=== PATIENT | female | born 1940 | race Caucasian/White ===

== ENCOUNTER 2023-05-29 08:15 | Emergency (ER) | payer MEDICARE, OTHER ==
[2023-05-29] MEDS ORDERED: Bacitracin 1 PK ONE (10:08)
== END 2023-05-29 10:13 | disposition home or self-care (01) ==
LOC: MADERS 08:15
DX: S09.90XA Unspecified injury of head, initial encounter (principal); S01.01XA Laceration without foreign body of scalp, initial encounter; M54.2 Cervicalgia; E11.9 Type 2 diabetes mellitus without complications; E78.00 Pure hypercholesterolemia, unspecified; W10.9XXA Fall (on) (from) unspecified stairs and steps, initial encounter; Y93.01 Activity, walking, marching and hiking; Z79.899 Other long term (current) drug therapy
CPT/HCPCS: 70450; 72125